=== PATIENT | male | born 2000 | race Hispanic/Latino ===

== ENCOUNTER 2024-03-26 10:49 | Emergency (ER) | payer SELFPAY ==
[2024-03-26] VITALS (14 sets, daily range): BP systolic 116–143; BP diastolic 71–98
[~2024-03-26] VITALS: Ht 177.8 cm; Wt 86.2 kg
[2024-03-26] MEDS ORDERED: CEPHALEXIN MONOHYDRATE 500 MG/CAP PO ONE (11:30)
[2024-03-26] MEDS ORDERED: Diph, Acellular Pertussis, Tet 0.5 ML/VIAL (Tdap) SDV IM ONE (12:05)
[2024-03-26] MEDS ORDERED: oxyCODONE 5MG/ ACETAMINOPHEN 325MG TAB PO ONE (12:10)
[2024-03-26] MEDS ORDERED: CEPHALEXIN500 M1 PO (13:39)
[2024-03-26] MEDS ORDERED: TRAMADOL HYDROC50 M1 PO (13:39)
[2024-03-26] MEDS ORDERED: BACTRIM DS1 TAB PO (13:39)
== END 2024-03-26 14:34 | disposition home or self-care (01) | DRG 605 ==
LOC: ED 10:49
DX: S61.231A Puncture wound without foreign body of left index finger without damage to nail, initial encounter (principal); F17.200 Nicotine dependence, unspecified, uncomplicated; W45.0XXA Nail entering through skin, initial encounter
CPT/HCPCS: 90715